=== PATIENT | female | born 1960 ===

== ENCOUNTER → 2020-11-23 08:56 | Outpatient (BNVA) | payer OTHER, SELFPAY | PROVIDERS: PCP Internal Medicine; Visit Provider Nurse Practitioner Family | DX: I47.1 Supraventricular tachycardia (principal); I45.10 Unspecified right bundle-branch block; I25.119 Atherosclerotic heart disease of native coronary artery with unspecified angina pectoris; E78.00 Pure hypercholesterolemia, unspecified; Z98.890 Other specified postprocedural states | CPT/HCPCS: 99214; 93005 ==

== ENCOUNTER → 2021-03-29 08:49 | Outpatient (BNVA) | payer OTHER, SELFPAY | PROVIDERS: PCP Internal Medicine; Visit Provider Internal Medicine Cardiovascular Disease ==

== ENCOUNTER 2022-04-10 09:08 | Outpatient (REF) | payer OTHER, SELFPAY ==
[2022-04-10 11:33] LABS: Alanine Aminotransferase 38 U/L (0-31); Albumin Level 4.3 g/dL (3.5-5.0); Alkaline Phosphatase 80 U/L (39-117); Anion Gap 15 (12-20); Aspartate Amino Transferase 36 U/L (5-31); Bilirubin Total 0.5 mg/dL (0.0-1.0); Blood Urea Nitrogen 11 mg/dL (9-16); Calcium 9.5 mg/dL (8.4-10.2); Carbon Dioxide 27 mmol/L (22-29); Chloride 105 mmol/L (96-108); Cholesterol 142 mg/dL; Estimated Glomerular Filt Rate > 60; Glucose Fasting 107 mg/dL (60-99); HDL Cholesterol 58 mg/dL; LDL Cholesterol Calculated 62 mg/dl; Potassium 4.6 mmol/L (3.3-5.1); Sodium 142 mmol/L (135-145); Total Protein 7.4 g/dL (6.5-8.0); Triglycerides 114 mg/dL
[2022-04-10 11:48] LABS: TSH reflex Free T4 1.98 uIU/mL (0.32-4.0)
== END 2022-04-10 09:09 | disposition home or self-care (01) ==
LOC: HO.HMGCLDS 09:08
PROVIDERS: PCP Internal Medicine; Visit Provider Internal Medicine
DX: I25.119 Atherosclerotic heart disease of native coronary artery with unspecified angina pectoris (principal); I47.1 Supraventricular tachycardia
CPT/HCPCS: 36415; 80053; 80061; 84443

== ENCOUNTER → 2022-05-10 09:04 | Outpatient (BNVA) | payer OTHER, SELFPAY | PROVIDERS: PCP Internal Medicine; Referring Provider Internal Medicine; Visit Provider Internal Medicine Cardiovascular Disease | DX: I25.119 Atherosclerotic heart disease of native coronary artery with unspecified angina pectoris (principal); I47.1 Supraventricular tachycardia | CPT/HCPCS: 93005 ==

== ENCOUNTER 2023-05-03 10:25 | Outpatient (REF) | payer OTHER, SELFPAY ==
[2023-05-03 10:34] LABS: MANUAL DIFF FLAG NO
[2023-05-03 10:53] LABS: Basophils Percent Auto 0.8 % (0-2); Eosinophils Absolute Auto 0.2 X10*3/uL (0.0-0.4); Eosinophils Percent Auto 3.1 % (0-4); Hemoglobin 13.7 g/dl (12.0-16.0); Imm Gran Abs Auto 0.02 X10*3/uL (0.00-0.03); Imm Gran Pct Auto 0.4 % (0.0-0.4); Lymphocytes Absolute Auto 1.6 X10*3/uL (1.2-4.9); Lymphocytes Percent Auto 30.5 % (20-40); Mean Corpuscular HGB Conc 32.6 g/dl (31.0-35.0); Mean Corpuscular Hemoglobin 31.7 pg (27.0-33.0); Mean Corpuscular Volume 97.2 fL (80.0-98.0); Mean Platelet Volume 8.6 fL (9.4-12.3); Monocytes Absolute Auto 0.7 X10*3/uL (0.1-1.2); Monocytes Percent Auto 12.6 % (2-11); Neutrophils Absolute Auto 2.7 x10*3/uL (2.0-8.3); Neutrophils Percent Auto 52.6 % (45-73); Platelet Count 257 X10*3/uL (160-400); Red Blood Count 4.32 X10*6/uL (4.20-5.50); Red Cell Distribution Width 13.3 % (11.0-16.0); White Blood Count 5.1 X10*3/uL (4.8-10.8)
[2023-05-03 11:51] LABS: Alanine Aminotransferase 34 U/L (0-31); Albumin Level 4.4 g/dL (3.5-5.0); Alkaline Phosphatase 68 U/L (39-117); Anion Gap 15 (12-20); Aspartate Amino Transferase 30 U/L (5-31); Bilirubin Total 0.4 mg/dL (0.0-1.0); Blood Urea Nitrogen 10 mg/dL (9-16); Calcium 9.7 mg/dL (8.4-10.2); Carbon Dioxide 24 mmol/L (22-29); Chloride 107 mmol/L (96-108); Cholesterol 152 mg/dL (<200); Estimated Glomerular Filt Rate > 60; Glucose Fasting 95 mg/dL (60-99); HDL Cholesterol 52 mg/dL (>40); LDL Cholesterol Calculated 66 mg/dL (<100); Sodium 142 mmol/L (135-145); Total Protein 7.7 g/dL (6.5-8.0); Triglycerides 170 mg/dL (<150)
[2023-05-03 11:54] LABS: Vitamin D 25-OH Total 42.3 ng/mL (>30)
[2023-05-05 03:57] LABS: HBS Num1 64.73 mIU/mL (0-7.99); HBc Num1 0.07 S/CO (0.00-0.79); HBsAGNum1 0.32 S/CO (0.00-0.99); Hepatitis B Core Antibody Nonreactive (Nonreactive); Hepatitis B Surface Antigen Negative (Negative); ~HepC Num1 0.04 S/CO (0.00-0.79); ~Hepatitis B Surface Antibody REACTIVE (Nonreactive); ~Hepatitis C Antibody Nonreactive (Nonreactive)
== END 2023-05-03 10:26 | disposition home or self-care (01) ==
LOC: HO.LAB 10:25
PROVIDERS: PCP Internal Medicine; Visit Provider Internal Medicine
DX: I10 Essential (primary) hypertension (principal); E78.00 Pure hypercholesterolemia, unspecified; R79.89 Other specified abnormal findings of blood chemistry
CPT/HCPCS: 36415; 80053; 80061; 82306; 85025; 86704; 86706; 86803; 87340

== ENCOUNTER 2023-05-06 08:23 | Outpatient (AMB) | payer OTHER, SELFPAY ==
[2023-05-06 08:24] VITALS: BP 120/72; PULSE 56; O2SAT 96; BMI 28.7
--- NOTE | 2023-05-06 08:24 | MHC.PC.OV ---
Vital Signs 05/06/23 08:24 Height 5 ft 3 in Weight 162 lb BMI 28.7 BP 120/72 Blood Pressure Location Lt brachial Position Sitting Pulse 56 Pulse Source Pulse Oximeter Pulse Oximetry (%) 96 Oxygen Delivery Method Room Air Intake Visit Reasons: PE Intake Note: Pt is here today for PE. Allergies Sulfa (Sulfonamide Antibiotics) [SULFA (SULFONAMIDE ANTIBIOTICS)] Allergy (Unknown, Verified 05/06/23 08:26) UNKNOWN sulfur Allergy (Unknown, Uncoded 05/06/23 08:26) redness and itching Medication List - Last Reconciled 05/06/23 by Adali Asif MD amlodipine 5 mg PO DAILY aspirin 81 mg PO DAILY atorvastatin 20 mg PO DAILY flecainide 50 mg PO BID metoprolol succinate ER 50 mg PO BID 90 days Tobacco use date assessed: 05/06/23 Dental Screening Dental Screen Date: 05/06/23 Did you have a dental visit in the last 12 months?: Yes Did you have a dental problem in the last 6 months where you did not have access to dental care?: No Was dental information given to patient?: Patient has dentist HPI PE HPI Details Pt presents for PE. [facility] Medical History (Updated 05/06/23 @ 10:21 by Adali Asif MD) Pure hypercholesterolemia, unspecified Essential hypertension Coronary artery disease involving [place] coronary artery of [place] heart with angina pectoris SVT (supraventricular tachycardia) Right bundle branch block (RBBB) Surgical History History of cardiac catheterization Family History Father No problems noted. Mother No problems noted. Brother No problems noted. 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 Housing: House Alcohol intake: current Alcohol intake frequency: a few times a month Patient Tobacco Use Status: Never used Tobacco e-Cigarette/Vaping Use: Never Used service: No Current occupational status: employed Cognitive needs: No Hearing needs: No Vision needs: Yes Questionnaire Thrive Questionnaire Date Thrive assessed: 11/04/22 I am a: Patient What is your living situation today?: I have a steady place to live Within the past 12 months, did the food you bought not last and you didn't have the money to get more?: Never true Within the past 12 months, did you worry whether your food would run out before you got money to buy more?: Never true AUDIT C Alcohol Use Questionnaire (AUDIT-C) 1. How often do you have a drink containing alcohol?: 2-3 times a week 2. How many drinks containing alcohol do you have on a typical day when you are drinking?: 1 or 2 3. How often do you have six or more drinks on one occasion?: Never Total Score: 3 KVNG-7 AMB Questionnaire KVNG-7 Date KVNG - 7 assessed: 11/04/22 Feeling nervous, anxious, or on edge: 0 = Not at all Not being able to stop or control worryin = Not at all Worrying too much about different things: 0 = Not at all Trouble relaxin = Not at all Being so restless that it is hard to sit still: 0 = Not at all Becoming easily annoyed or irritable: 0 = Not at all Feeling afraid as if something awful might happen: 0 = Not at all Total KVNG-7 score (0-4 normal; 5-9 mild; 10-14 moderate; 15-21 severe): 0 Source: Developed by Drs. Hossein Mccoy, Ai Carlin, Rohan Chao and colleagues, with an educational mariann from [employer]. Review of Systems Const All systems reviewed & are unremarkable except as noted in HPI and below Reports no additional complaints Eyes Reports no additional complaints ENT Reports no additional complaints Card Reports no additional complaints Resp Reports no additional complaints GI Reports no additional complaints Reports no additional complaints Physical exam (Primary Care) Vital Signs: Last Vital Signs Pulse 56 05/06/23 08:24 BP 120/72 05/06/23 08:24 Pulse Ox 96 05/06/23 08:24 Oxygen Delivery Method Room Air 05/06/23 08:24 BMI result Body Mass Index 28.7 Tobacco/Smoking Status: Tobacco use Status Tobacco use date assessed 05/06/23 05/06/23 08:30 Patient Tobacco Use Status Never used Tobacco 05/06/23 08:30 e-Cigarette/Vaping Use Never Used 05/06/23 08:30 Thrive Assessment: Date of Thrive Assessment Date Thrive assessed 11/04/22 05/06/23 08:30 Const General: no acute distress HENMT Head: Yes normal to inspection Ears: hearing grossly normal bilaterally General nose exam: Normal external nose present Throat: Yes posterior oropharynx normal Neck Neck: Yes no lymphadenopathy and Yes supple Resp Effort & Inspection: normal respiratory effort Auscultation: clear to auscultation bilaterally Cardio Rhythm: regular rhythm Heart sounds: S1 normal heart sound present and S2 normal heart sound present GI Inspection: Yes normal to inspection Palpation (GI): Soft to palpation Percussion: Yes normal to percussion Auscultation: normal bowel sounds Assessment and Plan Assessment & Plan (1) Hx of colonoscopy: Comment: 1 polyp, ? 2017, repeat 5 yrs, [facility] Dr. Isabel Code(s): Z98.890 - Other specified postprocedural states (2) Normal pelvic exam: Comment: [facility] courier 03/2022 Code(s): Z01.419 - Encounter for gynecological examination (general) (routine) without abnormal findings (3) Pure hypercholesterolemia, unspecified: Code(s): E78.00 - Pure hypercholesterolemia, unspecified Plan: Continue statin (4) Essential hypertension: Code(s): I10 - Essential (primary) hypertension (5) Coronary artery disease involving [place] coronary artery of [place] heart with angina pectoris: Code(s): I25.119 - Atherosclerotic heart disease of [place] coronary artery with unspecified angina pectoris (6) SVT (supraventricular tachycardia): Comment: f/u Dr. Sharma, sees Dr. Hall, started flecainide 12/01 Code(s): I47.1 - Supraventricular tachycardia Plan: EKG showed question of AFib with heart rate on 02/08, right bundle branch block. Patient will cont current meds and will discuss with Dr. Hall. Obtaining Holter monitor discussed with the patient but she declined. Orders: Orders Comprehensive [place]. Panel Fast 365 Days E78.00 - Pure hypercholesterolemia, unspecified, I10 - Essential (primary) hypertension, I47.1 - Supraventricular tachycardia, Z00.00 - Encounter for general adult medical examination without abnormal findings Complete Blood Count Auto Diff 365 Days E78.00 - Pure hypercholesterolemia, unspecified, I10 - Essential (primary) hypertension, I47.1 - Supraventricular tachycardia, Z00.00 - Encounter for general adult medical examination without abnormal findings Lipid Panel 365 Days E78.00 - Pure hypercholesterolemia, unspecified, I10 - Essential (primary) hypertension, I47.1 - Supraventricular tachycardia, Z00.00 - Encounter for general adult medical examination without abnormal findings TSH reflex Free T4 365 Days E78.00 - Pure hypercholesterolemia, unspecified, I10 - Essential (primary) hypertension, I47.1 - Supraventricular tachycardia, Z00.00 - Encounter for general adult medical examination without abnormal findings Coding Level of Care Code Est Pt Prev Care 40-64y(75958) Diagnoses Hx of colonoscopy Z98.890 Normal pelvic exam Z01.419 Pure hypercholesterolemia, unspecified E78.00 Essential hypertension I10 Coronary artery disease involving [place] coronary artery of [place] heart with angina pectoris I25.119 SVT (supraventricular tachycardia) I47.1
== END 2023-05-06 09:34 | disposition home or self-care (01) ==
PROVIDERS: Visit Provider Internal Medicine
DX: Z00.00 Encounter for general adult medical examination without abnormal findings (principal); I10 Essential (primary) hypertension; Z98.890 Other specified postprocedural states; I25.119 Atherosclerotic heart disease of native coronary artery with unspecified angina pectoris; I47.1 Supraventricular tachycardia; E78.00 Pure hypercholesterolemia, unspecified
CPT/HCPCS: 99396

== ENCOUNTER 2023-05-16 09:12 | Outpatient (AMB) | payer OTHER, SELFPAY ==
--- NOTE | 2023-05-16 10:47 | MHC.OFFWIV ---
Intake Vital Signs 05/16/23 10:52 Height 5 ft 3 in Weight 162 lb BMI 28.7 BP 120/90 H Blood Pressure Location Lt brachial Position Sitting Pulse 56 Pulse Source Pulse Oximeter Pulse Oximetry (%) 96 Oxygen Delivery Method Room Air Intake Visit Reasons: EP, Right shoulder pain Intake Note: Patient here for right shoulder pain, she believes to have pulled something on friday. Patient Tobacco Use Status: Never used Tobacco Allergies Sulfa (Sulfonamide Antibiotics) [SULFA (SULFONAMIDE ANTIBIOTICS)] Allergy (Unknown, Verified 05/16/23 10:52) UNKNOWN sulfur Allergy (Unknown, Uncoded 05/16/23 10:52) redness and itching Do you need a note to return to daycare/school/sports/work: No HPI HPI Comments History of Present Illness Details This is a 62-year-old female who presents to the office today for sick visit. Patient complaining of right shoulder pain x4 days. Patient states she developed acute right shoulder pain after lifting her arms to grab nesting dotson on the top shelf of her cabinet. She reports pain with range of motion in all planes. She denies any numbness/weakness/ paresthesias of her arm or hand. She is otherwise feeling well. [facility] Medical History (Updated 05/16/23 @ 11:06 by HUGH Dubose) Pure hypercholesterolemia, unspecified Essential hypertension Coronary artery disease involving [place] coronary artery of [place] heart with angina pectoris SVT (supraventricular tachycardia) Right bundle branch block (RBBB) Surgical History History of cardiac catheterization Family History Father No problems noted. Mother No problems noted. Brother No problems noted. 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 Housing: House Alcohol intake: current Alcohol intake frequency: a few times a month Patient Tobacco Use Status: Never used Tobacco e-Cigarette/Vaping Use: Never Used service: No Current occupational status: employed Cognitive needs: No Hearing needs: No Vision needs: Yes Review of Systems Const All systems reviewed & are unremarkable except as noted in HPI and below Reports no additional complaints Eyes Reports no additional complaints ENT Reports no additional complaints Card Reports no additional complaints Resp Reports no additional complaints GI Reports no additional complaints Reports no additional complaints Musc Reports no additional complaints Skin/Breast Reports system reviewed and no additional complaints, except as documented Neuro Reports no additional complaints Psych Reports no additional complaints Endo Reports no additional complaints Gautam/Lymph Reports no additional complaints Aller/Immun Reports no additional complaints Physical Exam Vital Signs: Last Vital Signs Pulse 56 05/16/23 10:52 BP 120/90 H 05/16/23 10:52 Pulse Ox 96 05/16/23 10:52 Oxygen Delivery Method Room Air 05/16/23 10:52 BMI result Body Mass Index 28.7 Const Other: Vital signs reviewed. Constitutional: Non-toxic appearing. No acute distress. Well-developed and well-nourished. HEENT: Normocephalic and atraumatic. Tympanic membranes without erythema, edema, or bulging bilaterally. External auditory canals without erythema or edema bilaterally. Moist mucous membranes. No pharyngeal erythema or exudates. Skin: Warm and dry. No rashes or lesions noted. Neck: Full and painless range of motion. No cervical lymphadenopathy. Cardio: Regular rate. No lower extremity edema. No JVD. Pulmonary: No respiratory distress. No accessory muscle usage. Gastrointestinal: Soft, nontender, and nondistended in all 4 quadrants. Genitourinary: No CVA tenderness. Musculoskeletal: No focal or bony tenderness to palpation of the right shoulder. She has mild diffuse tenderness to palpation of the right shoulder. She has decreased range of motion with forward flexion, abduction, and internal / external rotation of the right shoulder. Neuro: Alert and oriented x4. Cranial nerves 2-12 grossly intact. No focal deficits appreciated. Psych: Normal mood and affect. Assessment & Plan Assessment & Plan (1) Sprain of right shoulder: Code(s): S43.401A - Unspecified sprain of right shoulder joint, initial encounter Plan: This is a 62-year-old female who presents to the office complaining of right shoulder pain x4 days. On physical examination, patient has decreased range of motion with forward flexion, abduction, and internal / external rotation of the right shoulder. Differential diagnosis includes sprain/ strain versus rotator cuff tear versus labral tear versus less likely fracture/avulsion fracture. Obtain x-ray of the right shoulder. Recommend rest/activity modification, ice to the area, and acetaminophen for pain management. Patient was given a prescription for PO prednisone 40 mg daily x5 days to help with inflammation and she is unable to take ibuprofen. Orthopedic surgery referral was given to the patient. The patient was given a shoulder immobilizer sling to use for 1 week. Patient advised to follow-up here or go to the emergency room for persistent/worsening symptoms. Patient verbalized understanding and is agreeable with the plan. Orders: Orders XR shoulder RT min 2V Today M25.511 - Pain in right shoulder Referrals Orthopedics Referral M25.511 - Pain in right shoulder Medications: New prednisone 40 mg (2 x 20 mg) PO DAILY 5 tabs 0RF Coding Level of Care Code Est Pt Level 3 (07236) Diagnoses Sprain of right shoulder S43.401A
[2023-05-16 10:52] VITALS: BP 120/90; PULSE 56; O2SAT 96; BMI 28.7
== END 2023-05-16 11:21 | disposition home or self-care (01) ==
PROVIDERS: PCP Internal Medicine; Visit Provider Physician Assistant Medical
DX: S43.401A Unspecified sprain of right shoulder joint, initial encounter (principal)
CPT/HCPCS: 99213

== ENCOUNTER 2023-05-16 11:08 | Outpatient (REF) | payer OTHER, SELFPAY | END 2023-05-16 11:09 | disposition home or self-care (01) | LOC: HO.HMGCX 11:08 | PROVIDERS: PCP Internal Medicine; Visit Provider Physician Assistant Medical | DX: M25.511 Pain in right shoulder (principal) | CPT/HCPCS: 73030 ==

== ENCOUNTER 2024-05-07 09:02 | Outpatient (AMB) | payer OTHER, SELFPAY ==
--- NOTE | 2024-05-07 09:02 | A.OFFPC_ITS ---
Vital Signs 05/07/24 09:03 Height 5 ft 3 in Weight 160 lb BMI 28.3 BP 96/60 Blood Pressure Location Rt brachial Position Sitting Pulse 63 Pulse Source Pulse Oximeter Pulse Oximetry (%) 95 Oxygen Delivery Method Room Air Intake Visit Reasons: PE Intake Note: Pt is here today for PE. Allergies Sulfa (Sulfonamide Antibiotics) [SULFA (SULFONAMIDE ANTIBIOTICS)] Allergy (Unknown, Verified 05/07/24 09:04) UNKNOWN sulfur Allergy (Unknown, Uncoded 05/07/24 09:04) redness and itching Medication List - Last Reconciled 05/07/24 by Adali Asif MD amlodipine 5 mg PO DAILY aspirin 81 mg PO DAILY atorvastatin 20 mg PO DAILY flecainide 50 mg PO BID metoprolol succinate ER 50 mg PO BID 90 days Tobacco use date assessed: 05/07/24 Dental Screening Dental Screen Date: 05/07/24 Did you have a dental visit in the last 12 months?: Yes Did you have a dental problem in the last 6 months where you did not have access to dental care?: No Was dental information given to patient?: Patient has dentist HPI PE HPI Details Pt presents for PE. [facility] Medical History (Updated 05/07/24 @ 09:22 by Adali Asif MD) Pure hypercholesterolemia, unspecified Essential hypertension Coronary artery disease involving [place] coronary artery of [place] heart with angina pectoris SVT (supraventricular tachycardia) Right bundle branch block (RBBB) Surgical History (Updated 05/07/24 @ 09:22 by Adali Asif MD) History of cardiac catheterization Family History Father No problems noted. Mother No problems noted. Brother No problems noted. 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 1. Little interest or pleasure in doing things: not at all 2. Feeling down, depressed, or hopeless: not at all 3. Trouble falling or staying asleep, or sleeping too much: not at all 4. Feeling tired or having little energy: not at all 5. Poor appetite or overeating: not at all 6. Feeling bad about yourself - or that you are a failure or have let yourself or your family down: not at all 7. Trouble concentrating on things, such as reading the newspaper or watching television: not at all 8. Moving or speaking so slowly that other people could have noticed. Or the opposite - being so fidgety or restless that you have been moving around a lot more than usual: not at all 9. Thoughts that you would be better off or of hurting yourself in some way: not at all Total score: 0 Depression Screening Interpretation: Negative Depression Screening Done: Yes 55621 - PHQ-9 Billing: Yes Source: Developed by Drs. Hossein Mccoy, Ai Carlin, Rohan Chao and colleagues, with an educational mariann from [employer]. Thrive Questionnaire Date Thrive assessed: 05/07/24 I am a: Patient What is your living situation today?: I have a steady place to live Within the past 12 months, did the food you bought not last and you didn't have the money to get more?: I choose not to answer this question Within the past 12 months, did you worry whether your food would run out before you got money to buy more?: I choose not to answer this question Do you have trouble paying for medicines?: I choose not to answer this question Do you have trouble getting transportation to medical appointments?: I choose not to answer this question Do you have trouble paying your heating and electricity bill?: I choose not to answer this question Do you have trouble taking care of your child, family member or friend?: I choose not to answer this question Do you have trouble with day-to-day activities such as bathing, preparing meals, shopping, managing finances, etc.?: I choose not to answer this question Are you interested in more education?: No Please select the resources that you would like help with: None Currently or been in a relationship where the following occur: I choose not to answer THRIVE Score: 0 AUDIT C Alcohol Use Questionnaire (AUDIT-C) 1. How often do you have a drink containing alcohol?: Never 3. How often do you have six or more drinks on one occasion?: Never Total Score: 0 KVNG-7 AMB Questionnaire KVNG-7 Date KVNG - 7 assessed: 05/07/24 Feeling nervous, anxious, or on edge: 0 = Not at all Not being able to stop or control worryin = Not at all Worrying too much about different things: 0 = Not at all Trouble relaxin = Not at all Being so restless that it is hard to sit still: 0 = Not at all Becoming easily annoyed or irritable: 0 = Not at all Feeling afraid as if something awful might happen: 0 = Not at all Total KVNG-7 score (0-4 normal; 5-9 mild; 10-14 moderate; 15-21 severe): 0 Source: Developed by Drs. Hossein Mccoy, Ai Carlin, Rohan Chao and colleagues, with an educational mariann from [employer]. KVNG-7 Assessment Billing KVNG-7 Assessment Tool: KVNG-7 Assessment 05463 Review of Systems Const All systems reviewed & are unremarkable except as noted in HPI and below Eyes Reports no additional complaints ENT Reports no additional complaints Card Reports no additional complaints Resp Reports no additional complaints GI Reports no additional complaints Reports no additional complaints Physical exam (Primary Care) Vital Signs: Last Vital Signs Pulse 63 05/07/24 09:03 BP 96/60 05/07/24 09:03 Pulse Ox 95 05/07/24 09:03 Oxygen Delivery Method Room Air 05/07/24 09:03 BMI result Body Mass Index 28.3 Tobacco/Smoking Status: Tobacco use Status Tobacco use date assessed 05/07/24 05/07/24 09:09 Patient Tobacco Use Status Never used Tobacco 05/07/24 09:09 e-Cigarette/Vaping Use Never Used 05/07/24 09:09 PHQ-9: PHQ-9 Score PHQ-9: Total score 0 05/07/24 09:09 Depression Screening Interpretation: Negative Thrive Assessment: Date of Thrive Assessment Date Thrive assessed 05/07/24 05/07/24 09:09 Currently or been in a relationship where the following occur: I choose not to answer Const General: no acute distress HENMT Head: Yes normal to inspection Ears: hearing grossly normal bilaterally Face and sinus: Yes normal facial exam Mouth: Normal oral and palatal mucosa present Throat: Yes posterior oropharynx normal Eyes General: appearance normal, both eyes and all related structures Neck Neck: Yes no lymphadenopathy and Yes supple Resp Effort & Inspection: normal respiratory effort Auscultation: clear to auscultation bilaterally Cardio Rhythm: regular rhythm Heart sounds: S1 normal heart sound present and S2 normal heart sound present GI Inspection: Yes normal to inspection Palpation (GI): Soft to palpation Percussion: Yes normal to percussion Auscultation: normal bowel sounds Assessment and Plan Assessment & Plan (1) Essential hypertension: Code(s): I10 - Essential (primary) hypertension Plan: Continue current medications (2) Pure hypercholesterolemia, unspecified: Code(s): E78.00 - Pure hypercholesterolemia, unspecified Plan: Continue statin (3) Hx of colonoscopy: Comment: 1 polyp, ? 2017, repeat 7 yrs, [facility] Dr. Isabel Code(s): Z98.890 - Other specified postprocedural states Plan: Patient will check with GI when she is due for a repeat colonoscopy (4) Annual physical exam: Code(s): Z00.00 - Encounter for general adult medical examination without abnormal findings Plan: Well-balanced diet regular physical activity discussed with the patient she will return for fasting blood work. Patient is up-to-date with the mammogram and pe lvic exam by master of ceremonies Orders: Orders Complete Blood Count Auto Diff 1 Year E78.00 - Pure hypercholesterolemia, unspecified, I10 - Essential (primary) hypertension, Z00.00 - Encounter for general adult medical examination without abnormal findings, Z98.890 - Other specified postprocedural states TSH reflex Free T4 1 Year E78.00 - Pure hypercholesterolemia, unspecified, I10 - Essential (primary) hypertension, Z00.00 - Encounter for general adult medical examination without abnormal findings, Z98.890 - Other specified postprocedural states Lipid Panel 1 Year E78.00 - Pure hypercholesterolemia, unspecified, I10 - Essential (primary) hypertension, Z00.00 - Encounter for general adult medical examination without abnormal findings, Z98.890 - Other specified postprocedural states Comprehensive [place]. Panel Fast 1 Year E78.00 - Pure hypercholesterolemia, unspecified, I10 - Essential (primary) hypertension, Z00.00 - Encounter for general adult medical examination without abnormal findings, Z98.890 - Other specified postprocedural states UA w Microscopic 1 Year E78.00 - Pure hypercholesterolemia, unspecified, I10 - Essential (primary) hypertension, Z00.00 - Encounter for general adult medical examination without abnormal findings, Z98.890 - Other specified postprocedural states Medications: Refilled amlodipine 5 mg PO DAILY 90 tabs 3RF aspirin 81 mg PO DAILY 90 tabs 3RF atorvastatin 20 mg PO DAILY 90 tabs 3RF Coding Level of Care Code Est Pt Prev Care 40-64y(75743) Diagnoses Essential hypertension I10 Pure hypercholesterolemia, unspecified E78.00 Hx of colonoscopy Z98.890 Annual physical exam Z00.00 Additional Codes KVNG-7 Assessment Billing - KVNG-7 Assessment Tool: KVNG-7 Assessment 10684 ([id number])
[2024-05-07 09:03] VITALS: BP 96/60; PULSE 63; O2SAT 95; BMI 28.3
== END 2024-05-07 09:33 | disposition home or self-care (01) ==
PROVIDERS: PCP Internal Medicine; Visit Provider Internal Medicine
DX: I10 Essential (primary) hypertension (principal); E78.00 Pure hypercholesterolemia, unspecified; Z98.890 Other specified postprocedural states; Z00.00 Encounter for general adult medical examination without abnormal findings

== ENCOUNTER → 2024-05-07 09:02 | Outpatient (BNVA) | payer OTHER, SELFPAY | PROVIDERS: PCP Internal Medicine; Visit Provider Internal Medicine | DX: Z00.00 Encounter for general adult medical examination without abnormal findings (principal); I10 Essential (primary) hypertension; E78.00 Pure hypercholesterolemia, unspecified; Z79.899 Other long term (current) drug therapy | CPT/HCPCS: 96127 ==

== ENCOUNTER 2025-01-12 07:46 | Outpatient (REF) | payer OTHER, SELFPAY ==
--- OUTSIDE RECORDS SUMMARY | 2025-01-12 07:50 | XMS_ITS | Clinical Summary ---
Author Organization [address] [place] [address] [place] [phone] Phone Care Team Providers Care Hydraulic Design Engineer Name Role Phone Adali Asif MD Primary Care Provider [phone] Allergies Active Allergy Reactions Criticality Noted Date Comments Sulfa (Sulfonamide Antibiotics) 08/11 Medications amLODIPine (NORVASC) 5 mg tablet Take 1 tablet by mouth daily. 09/20/2021 Active aspirin 81 mg chewable tablet Take 1 Tab by mouth daily. 08/27/2019 Active atorvastatin (LIPITOR) 20 mg tablet Take 1 tablet by mouth daily. 09/19/2021 Active metoprolol succinate (TOPROL-XL) 50 mg 24 hr tablet Take 1 Tablet by mouth 2 times daily. 03/23/2024 Active flecainide (TAMBOCOR) 50 mg tablet Take 1 tablet (50 mg total) by mouth 2 (two) times a day. 180 tablet 3 06/17/2024 Active sod picosulf-mag ox-citric ac (Clenpiq) 10 mg-3.5 gram- 12 gram/175 mL solutionIndicati ons:Colon cancer screening Take 175 mL by mouth 2 (two) times a day. 350 mL 08/24/2024 Active Active Problems Problem Noted Date Diagnosed Date RBBB (right bundle branch block) 11/18/2022 Prediabetes 09/18/2021 Genital herpes 09/09/2019 PSVT (paroxysmal supraventri cular tachycardia) (CMS/HCC V24) 09/09/2019 Overview (06/07/2024): Supraventricular tachycardia. Patient refused ablation. Started flecainide which she is tolerating well. On metoprolol for rate control and underlying mild coronary disease. Last Assessment & Plan: Cindy is doing well on her current medicines and is very happy with the absence of any arrhythmias. I had a long discussion with her regarding the pros and cons of using flecainide. She understands the literature in patients with extensive coronary disease and prior infarct showing increased rates of ventricular tachycardia. We went through some alternative antiarrhythmics but she would like to stay with the flecainide. She did agree to undergo stress test with imaging to be certain that there is no active ischemia and I will continue the low-dose flecainide along with metoprolol. She will continue to consider catheter ablation as an alternative. Assessment & Plan (06/17/2024 2:38 PM EST): Supraventricular tachycardia currently controlled with metoprolol and flecainide. I had a long discussion with Cindy regarding the fact that she is not an ideal patient for flecainide having documented coronary disease and a right bundle branch block with a fairly wide QRS complex. I explained the data suggesting a potential increased risk for flecainide in patients with coronary disease or conduction disease. I went through catheter ablation with their and discussed the 98% success rate and very low complication rate. I would certainly we will get her off of both drugs if we were to perform the ablation successfully. I talked about other antiarrhythmic drugs and she was fairly firm that she wants to continue with the current medications. I did give her literature on the ablation and she will let me know if she is willing to proceed. Obesity (BMI 30.0-34.9) 12/29/2018 Abnormal Pap smear of cervix 03/26/2018 Overview (06/07/2024): 8/18 ASCUS with positive HPV 9/19 ASCUS with positive HPV Colon polyp 06/25/2017 Overview (06/07/2024): CN 05/27 - repeat 5 years Hyperlipidemia 06/25/2017 Assessment & Plan (06/17/2024 2:38 PM EST): Elevated lipids currently on a statin. Tolerating atorvastatin well. Hypertension 06/25/2017 Overview (06/07/2024): Last Assessment & Plan: Blood pressure appears to be well controlled on amlodipine and metoprolol. She will continue a low-sodium diet and active lifestyle. High risk HPV infection 12/23/2016 Overview (06/07/2024): Pap 12/06 neg with positive HPV 18 and 45. Colposcopy ordered. Colposcopy with biopsy 01/31 - NEGATIVE. Recommended pap in 12 months. CAD (coronary artery disease) 04/10/2012 Overview (06/07/2024): Nonobstructive disease LAD cath 03/27. Mild to moderate disease of the left circumflex and LAD with a normal right coronary artery. On atorvastatin with an LDL cholesterol of 45 and a normal HDL. Her triglycerides have typically been normal. Her most recent one was elevated but she did not fast for that blood sample. She has no active angina and exercises fairly regularly Last Assessment & Plan: This 62-year-old female has stable mild coronary disease without active angina. She is on a lipid-lowering agent with an excellent LDL cholesterol at below 50. She takes a low-dose aspirin which she tolerates well. She is on metoprolol for SVT and heart disease. Continue current medical therapy. I do want to bring her back for a nuclear stress test given she is on flecainide and is imperative to rule out any ischemia if she is going to continue with this medication. Assessment & Plan (06/17/2024 2:35 PM EST): Stable coronary disease without angina. Recent nuclear stress test negative. Current continues to take aspirin and lipid-lowering therapy. Encouraged continued healthy lifestyle and diet. Encounters Date Type Department Care Team Description 11/08/2024 Telephone Gastroenterology - [address] [place] [address] Adali Boyd MD Special Procedure R/S from Last 3 Months Immunizations Name Administration Dates Next Due Hepatitis B (Psfcpqo-N-Malil , Recombivax HB-Adult) 19yo and older 01/04/2015,08/10/2014,07/13/2014 Pfizer SARS-CoV-2 COVID-19, mRNA, LNP-S, preservative free 11/16/2020,10/26/2020 Td Tetanus diptheria (Tdvax) 7yo and older 03/19 Tdap Tetanus diptheria acell ular pertussis (Boostrix; Adacel) 7yo and older 03/01/2014 Surgical History Surgery Date Site/Laterality Comments OTHER SURGICAL HISTORY 03/2019 PROCEDURE: MAMMOGRAM COLONOSCOPY 05/2017 PROCEDURE: HISTORICAL COLONOSCOPY; COMMENT: small polyp, repeat 5 years CARDIAC CATHETERIZATION PROCEDURE: HISTORICAL CARDIAC CATH Medical History Medical History Date Comments Erythema migrans (Lyme disease) 01/09/12 DX:Erythema migrans (Lyme disease) Hypertension 06/25/2017 DX:Hypertension Hyperlipidemia 06/25/2017 DX:Hyperlipidemi a Colon polyp 06/25/2017 DX:Colon polyp; COMMENT: CN 05/27 - repeat 5 years Abnormal Pap smear of cervix 03/26/2018 DX: Abnormal Pap smear of cervix; COMMENT: 03/28 ASCUS with positive HPV Genital herpes 09/09/2019 DX:Genital herpe s PSVT (paroxysmal supraventri cular tachycardia) (CMS/HCC V24) 09/09/2019 DX:PSVT (paroxysmal suprave ntricular tachycardia) ([facility]) Family History Medical History Relation Name Comments Brain cancer Brother Lung cancer Father 70, Lung cancer Mother 74, HTN Breast cancer Neg Hx Colon cancer Neg Hx Ovarian cancer Neg Hx Uterine cancer Neg Hx Relation Name Status Comments Brother Father Mother Social History Tobacco Use Types Packs/Day Years Used Date Smoking Tobacco: Never Smokeless Tobacco: Never Alcohol Use Standard Drinks/Week Comments Yes 0 (1 standard drink = 0.6 oz pur e alcohol) socially Comments Unknown Sex and Gender Information Value Date Recorded Sex Assigned at Not on file Legal Sex Female 12:44 PM EST Gender Identity Not on file Sexual Orientation Not on file Obstetrics History Last Filed Vital Signs Vital Sign Reading Time Taken Comments Blood Pressure 110/72 06/17/2024 1:52 PM EST Pulse 64 06/17/2024 1:52 PM EST Temperature - - Respiratory Rate - - Oxygen Saturation 98% 06/17/2024 1:52 PM EST Inhaled Oxygen Concentration - - Weight 75.8 kg (167 lb) 08/24/2024 8:51 AM EST Height 160 cm (5' 3 ) 08/24/2024 8:51 AM EST Body Mass Index 29.58 08/24/2024 8:51 AM EST Plan of Treatment Upcoming Encounters Date Type Department Care Team (Late st Contact Info) Description 01/17/2025 10:30 AM EDT Hospital Encounter [facility] End[facility] [address] [place] [id number] Adali Boyd MD [address] [address] Health Maintenance Due Date Last Done Comments Pneumococcal Vaccine: 50+ Years (1 of 1 - PCV) 2012 Zoster Vaccines (1 of 2) 2012 Colorectal Cancer Screening: Colonoscopy 07/09/2022 06/10/2017 Depression Screening 07/09/2022 HIV Screening 07/09/2022 Social Influencers of Health Screening 07/09/2022 Hypertension/CHF/CAD Annual BMP Blood Test 09/17/2022 09/17/2021 Breast Cancer Screening 04/17/2023 04/17/20 21, 03/21/2020, 03/16/2019, Additional history exists DTaP,Tdap,and Td Vaccines (3 - Td or Tdap) 03/01/2024 03/01/2014, 03/19/2006 COVID-19 Vaccine (3 - season) 2024 11/16/2020, 10/26/2020 Influenza Vaccine (Season Ended) 2025 Cervical Cancer Screening: Pap Smear 09/25/2025 09/25/2022 Cholesterol Screening (Lipid Panel) 09/17/2026 09/17/2021 RSV Immunization Adult Patients (1 - 1-dose 75+ series) 2037 Hepatitis B Vaccines Completed 01/04/2015, 08/10/2014, 07/13/2014 Hepatitis C Screening Completed 03/11/2017 HIB Vaccines Aged Out No longer eligi ble based on patient's age to complete this topic HPV Vaccines Aged Out No longer eligi ble based on patient's age to complete this topic Hepatitis A Vaccines Aged Out No long er eligible based on patient's age to complete this topic IPV Vaccines Aged Out No longer eligi ble based on patient's age to complete this topic MMR Vaccines Aged Out No longer eligi ble based on patient's age to complete this topic Meningococcal ACWY Vaccine Aged Out N o longer eligible based on patient's age to complete this topic Meningococcal B Vaccine Aged Out No l onger eligible based on patient's age to complete this topic Pneumococcal Vaccine: Pediatrics (0 to 5 Years) and At-Risk Patients (6 to 64 Years) Aged Out No longer eligible based on patient's age to complete this topic RSV Immunization Patients Under 20 months Aged Out No longer eligible based on patient's age to complete this topic Varicella Vaccines Aged Out No longer eligible based on patient's age to complete this topic Procedures Procedure Name Priority Date/Time Associated Diagnosis Comments PAP SMEAR Routine 09/25/2022 ANNUAL BMP BLOOD TEST Routine 09/17/2021 LIPID PANEL Routine 09/17/2021 SCREENING MAMMOGRAPHY BI 2-VIEW BREAST INC CAD Routine 04/17/2021 5:52 PM EDT Encounter for screening mammogram for malignant neoplasm of breast COLONOSCOPY Routine 06/10/2017 HEPATITIS C SCREENING Routine 03/11/2017 from Last 3 Months or Most Recently Relevant to Health Maintenance Results * Pap Smear (09/25/2022) Pathologist [facility] Pap smear No Interpretation , Abstracted Historical Provider HEALTH MAINTENANCE Final Result * Annual BMP Blood Test (09/17/2021) Pathologist [facility] Annual BMP Blood Test Abstracted Historical Provider HEALTH MAINTENANCE Final Result * (ABNORMAL) Lipid panel (09/17/2021) Pathologist [facility] LDL/HDL Ratio 3 0 - 4 Triglycerides 357(A) 0 - 150 mg/dL Cholesterol 166 0 - 200 mg/dL HDL 50 >=40 mg/dL LDL Cholesterol 45 0 - 100 mg/dL Blood Venous blood specimen / Unknown Historical Provider LAB BLOOD ORDERABLES Sugey l Result * SCREENING MAMMOGRAPHY BI 2-VIEW BREAST INC CAD (04/17/2021 5:52 PM EDT) Anatomical Region Laterality Modality Radiographic Lorenza ging 03/21/2020 5:33 PM EDT Narrative 04/18/2021 10:15 AM EDT This is a summary report. The complete report is available in the patient's medical record. If you cannot access the medical record, please contact the sending organization for a detailed fax or copy. Full field digital screening 2D and 3D mammography, reviewed with CAD and compared to previous mammograms dating back to 03/06/2017 with most recent of 03/21/2020. The breast tissue is heterogeneously dense, limiting sensitivity. No suspicious mass, architectural distortion or suspicious calcifications are identified. Benign nodule in the medial upper left breast is unchanged. IMPRESSION: : Dense breast tissue, limiting the sensitivity of mammography. No mammographic evidence of malignancy. BIRADS. 5 year breast cancer risk assessment 1.1 % Lifetime breast cancer risk assessment 6.3 % Breast cancer risk category Low (<15%) Procedure Note Francisca Mccauley MD - 07/30/2022 This is a summary report. The complete report is available in thepatient's medical record. If you cannot access the medical record, pleasecontact the sending organization for a detailed fax or copy. Full field digital screening 2D and 3D mammography, reviewed with CAD andcompared to previous mammograms dating back to 03/06/2017 with most recentof 03/21/2020. The breast tissue is heterogeneously dense, limitingsensitivity. No suspicious mass, architectural distortion or suspiciouscalcifications are identified. Benign nodule in the medial upper left breast is unchanged. IMPRESSION: : Dense breast tissue, limiting the sensitivity of mammography. Nomammographic evidence of malignancy. BIRADS. 5 year breast cancer risk assessment 1.1 % Lifetime breast cancer risk assessment 6.3 % Breast cancer risk category Low (<15%) Giselle Alejandra DO IMG XR PROCEDURES Final R esult * Hm Colonoscopy (06/10/2017) Colonoscopy No Interpretation , Abstracted Anatomical Region Laterality Modality Other Historical Provider HEALTH MAINTENANCE Final Result * Hepatitis C Screening (03/11/2017) Hepatitis C Screening Abstracted us Historical Provider HEALTH MAINTENANCE Final Result from Last 3 Months or Most Recently Relevant to Health Maintenance Insurance [facility] [address] [place] [address] Care Teams Hydraulic Design Engineer Relationship Specialty Start Date End Date Adali Asif MD PCP - General Internal Medicine 06/17/24
[2025-01-12 11:14] LABS: MANUAL DIFF FLAG NO
[2025-01-12 11:16] LABS: Appearance Urine Clear; Color Urine Yellow; Glucose Urine UA Negative (Negative); Leukocyte Esterase Urine Small (1+) (Negative); Nitrite Urine Negative (Negative); Specific Gravity - Urine 1.025 (1.005-1.025); UMIC TRIGGER UA YES; Urine Blood Negative (Negative); Urine Ketones Negative (Negative); Urine Protein Negative (Neg-Trace)
[2025-01-12 11:19] LABS: Bacteria Urine None Seen (None Seen); Hyaline Casts Urine 0-2 /LPF (0-2); RBC Urine 0-2 /HPF (0-2)
[2025-01-12 11:39] LABS: Basophils Percent Auto 0.7 % (0-2); Eosinophils Absolute Auto 0.1 X10*3/uL (0.0-0.4); Eosinophils Percent Auto 1.7 % (0-4); Imm Gran Abs Auto 0.03 X10*3/uL (0.00-0.03); Imm Gran Pct Auto 0.5 % (0.0-0.4); Lymphocytes Absolute Auto 1.7 X10*3/uL (1.2-4.9); Lymphocytes Percent Auto 29.4 % (20-40); Mean Corpuscular HGB Conc 33.3 g/dl (31.0-35.0); Mean Corpuscular Hemoglobin 32.5 pg (27.0-33.0); Mean Corpuscular Volume 97.5 fL (80.0-98.0); Mean Platelet Volume 9.1 fL (9.4-12.3); Monocytes Absolute Auto 0.7 X10*3/uL (0.1-1.2); Monocytes Percent Auto 11.2 % (2-11); Neutrophils Absolute Auto 3.3 x10*3/uL (2.0-8.3); Neutrophils Percent Auto 56.5 % (45-73); Platelet Count 331 X10*3/uL (160-400); Red Cell Distribution Width 12.9 % (11.0-16.0); White Blood Count 5.8 X10*3/uL (4.8-10.8)
[2025-01-12 14:34] LABS: Alanine Aminotransferase 38 U/L (0-31); Albumin Level 4.2 g/dL (3.5-5.0); Alkaline Phosphatase 69 U/L (39-117); Anion Gap 10 (12-20); Aspartate Amino Transferase 28 U/L (5-31); Bilirubin Total 0.4 mg/dL (0.0-1.0); Blood Urea Nitrogen 16 mg/dL (9-16); Calcium 9.1 mg/dL (8.4-10.2); Carbon Dioxide 26 mmol/L (22-29); Chloride 108 mmol/L (96-108); Cholesterol 140 mg/dL (<200); Estimated Glomerular Filt Rate > 60; Glucose Fasting 87 mg/dL (60-99); HDL Cholesterol 51 mg/dL (>40); LDL Cholesterol Calculated 41 mg/dL (<100); Potassium 4.2 mmol/L (3.3-5.1); Sodium 140 mmol/L (135-145); TSH reflex Free T4 2.46 uIU/mL (0.32-4.0); Total Protein 7.1 g/dL (6.5-8.0); Triglycerides 243 mg/dL (<150)
== END 2025-01-12 07:47 | disposition home or self-care (01) ==
LOC: HO.WFDLDS 07:46
PROVIDERS: Visit Provider Internal Medicine
DX: Z00.00 Encounter for general adult medical examination without abnormal findings (principal); I10 Essential (primary) hypertension; I47.10 Supraventricular tachycardia, unspecified; Z98.890 Other specified postprocedural states
CPT/HCPCS: 36415; 80053; 80061; 81001; 84443; 85025

== ENCOUNTER 2025-01-14 11:31 | Outpatient (AMB) | payer OTHER, SELFPAY ==
[2025-01-14 11:36] VITALS: BP 108/66; PULSE 56; RESP 18; O2SAT 98; BMI 29.2
--- NOTE | 2025-01-14 11:36 | A.OFFPC_ITS ---
Vital Signs 01/14/25 11:36 Height 5 ft 3 in Weight 165 lb BMI 29.2 BP 108/66 Blood Pressure Location Lt brachial Position Sitting Respiration 18 Pulse 56 Pulse Source Pulse Oximeter Pulse Oximetry (%) 98 Oxygen Delivery Method Room Air Intake Visit Reasons: R hip pain Intake Note: Pt is here today for a sick visit. Pt c/o R hip pain for 6-8 weeks. Allergies Sulfa (Sulfonamide Antibiotics) [SULFA (SULFONAMIDE ANTIBIOTICS)] Allergy (Unknown, Verified 01/14/25 11:56) UNKNOWN sulfur Allergy (Unknown, Uncoded 01/14/25 11:56) redness and itching Medication List - Last Reconciled 01/14/25 by Adali Asif MD amlodipine 5 mg PO DAILY aspirin 81 mg PO DAILY atorvastatin 20 mg PO DAILY flecainide 50 mg PO BID meloxicam 15 mg PO DAILY metoprolol succinate ER 50 mg PO BID 90 days Tobacco use date assessed: 01/14/25 Dental Screening Dental Screen Date: 01/14/25 Did you have a dental visit in the last 12 months?: Yes Did you have a dental problem in the last 6 months where you did not have access to dental care?: No Was dental information given to patient?: Patient has dentist HPI R hip pain HPI Details Pt c/o R hip pain located in the right for 6 weeks, worse when starting to walk or sitting for long time. Patient has been walking daily for 1 mi and denies any recent falls/or hip injury [facility] Medical History Pure hypercholesterolemia, unspecified Essential hypertension Coronary artery disease involving [place] coronary artery of [place] heart with angina pectoris SVT (supraventricular tachycardia) Right bundle branch block (RBBB) Surgical History History of cardiac catheterization Family History Father No problems noted. Mother No problems noted. Brother No problems noted. 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, 1 grandchild Housing: House Alcohol intake: current Alcohol intake frequency: a few times a month Patient Tobacco Use Status: Never used Tobacco e-Cigarette/Vaping Use: Never Used service: No Current occupational status: employed Cognitive needs: No Hearing needs: No Vision needs: Yes Questionnaire Thrive Questionnaire Date Thrive assessed: 05/07/24 I am a: Patient What is your living situation today?: I have a steady place to live Within the past 12 months, did the food you bought not last and you didn't have the money to get more?: I choose not to answer this question Within the past 12 months, did you worry whether your food would run out before you got money to buy more?: I choose not to answer this question Do you have trouble paying for medicines?: I choose not to answer this question Do you have trouble getting transportation to medical appointments?: I choose not to answer this question Do you have trouble paying your heating and electricity bill?: I choose not to answer this question Do you have trouble taking care of your child, family member or friend?: I choose not to answer this question Do you have trouble with day-to-day activities such as bathing, preparing meals, shopping, managing finances, etc.?: I choose not to answer this question Are you currently unemployed and looking for a job?: No Are you interested in more education?: No Please select the resources that you would like help with: None Currently or been in a relationship where the following occur: I choose not to answer THRIVE Score: 0 AUDIT C Alcohol Use Questionnaire (AUDIT-C) 1. How often do you have a drink containing alcohol?: Monthly or less 2. How many drinks containing alcohol do you have on a typical day when you are drinking?: 1 or 2 3. How often do you have six or more drinks on one occasion?: Never Total Score: 1 KVNG-7 AMB Questionnaire KVNG-7 Date KVNG - 7 assessed: 05/07/24 Source: Developed by Drs. Hossein Mccoy, Ai Carlin, Rohan Chao and colleagues, with an educational mariann from [employer]. Review of Systems Const All systems reviewed & are unremarkable except as noted in HPI and below Eyes Reports no additional complaints ENT Reports no additional complaints Card Reports no additional complaints Resp Reports no additional complaints GI Reports no additional complaints Physical exam (Primary Care) Vital Signs: Last Vital Signs Pulse 56 01/14/25 11:36 Resp 18 01/14/25 11:36 BP 108/66 01/14/25 11:36 Pulse Ox 98 01/14/25 11:36 Oxygen Delivery Method Room Air 01/14/25 11:36 BMI result Body Mass Index 29.2 Tobacco/Smoking Status: Tobacco use Status Tobacco use date assessed 01/14/25 01/14/25 12:00 Patient Tobacco Use Status Never used Tobacco 01/14/25 11:37 e-Cigarette/Vaping Use Never Used 01/14/25 11:37 Thrive Assessment: Date of Thrive Assessment Date Thrive assessed 05/07/24 01/14/25 11:37 Currently or been in a relationship where the following occur: I choose not to answer Const General: no acute distress HENMT Head: Yes normal to inspection Resp Effort & Inspection: normal respiratory effort Auscultation: clear to auscultation bilaterally Cardio Rhythm: regular rhythm Heart sounds: S1 normal heart sound present and S2 normal heart sound present GI Palpation (GI): Soft to palpation Percussion: Yes normal to percussion Extrem Other: This is a slightly decreased range of motion of the right hip, straight leg rising 90 degrees bilaterally. No tenderness over greater trochanteric area General: Yes no clubbing, cyanosis or edema Coding Level of Care Code Est Pt Level 3 (25524) Diagnoses Right hip pain M25.551 Essential hypertension I10 Assessment & Plan Assessment & Plan (1) Right hip pain: Code(s): M25.551 - Pain in right hip Category: Medical Plan: For chronic right hip pain obtain x-ray of right hip meloxicam for 10 days is prescribed patient was giving home exercises for hip pain if her symptoms persist she will be referred to physical therapy (2) Essential hypertension: Code(s): I10 - Essential (primary) hypertension Category: Medical Plan: Continue current medication Orders: Orders XR hip RT w [id number] Today M25.551 - Pain in right hip Medications: New meloxicam 15 mg PO DAILY 10 tabs 0RF
--- OUTSIDE RECORDS SUMMARY | 2025-01-14 12:18 | XMS_ITS | Clinical Summary ---
Author Organization [address] [place] [address] [place] [phone] Phone Care Team Providers Care International Sales Manager Name Role Phone Adali Asif MD Primary Care Provider [phone] Allergies Active Allergy Reactions Criticality Noted Date [...] 11/08/2024 Telephone Gastroenterology - [address] [place] [address] Adali Boyd MD Special Procedure R/S from Last 3 Months Immunizations Name Administration Dates Next Due Hepatitis B (Bkqlzla-I-Oqdpi , Recombivax HB-Adult) 19yo and older 01/04/2015,08/10/2014,07/13/2014 [...] V24) 09/09/2019 DX:PSVT (paroxysmal suprave ntricular tachycardia) ([facility]) Family History Medical History Relation Name Comments [...] Description 01/17/2025 10:30 AM EDT Hospital Encounter [facility] End[facility] [address] [place] [phone] Adali Boyd MD [address] [address] Health Maintenance Due Date Last Done Comments [...] * Pap Smear (09/25/2022) Pathologist [facility] Pap smear No Interpretation , Abstracted Historical Provider HEALTH MAINTENANCE Final Result * Annual BMP Blood Test (09/17/2021) Pathologist [facility] Annual BMP Blood Test Abstracted Historical Provider HEALTH MAINTENANCE Final Result * (ABNORMAL) Lipid panel (09/17/2021) Pathologist [facility] LDL/HDL Ratio 3 0 - 4 Triglycerides [...] Most Recently Relevant to Health Maintenance Insurance [facility] [address] [place] [address] Care Teams International Sales Manager Relationship Specialty Start Date End Date Adali Asif MD PCP - General Internal Medicine 06/17/24
== END 2025-01-14 13:15 | disposition home or self-care (01) ==
LOC: HO.HMCC 11:32
PROVIDERS: PCP Internal Medicine; Visit Provider Internal Medicine
DX: M25.551 Pain in right hip (principal); I10 Essential (primary) hypertension

== ENCOUNTER → 2025-01-14 11:31 | Outpatient (BNVA) | payer OTHER, SELFPAY | PROVIDERS: PCP Internal Medicine; Visit Provider Internal Medicine ==

== ENCOUNTER 2025-01-25 07:38 | Outpatient (REF) | payer OTHER, SELFPAY ==
--- NOTE | ~2025-01-25 | XR_ITS ---
EXAMINATION: XR HIP, RIGHT CLINICAL INFORMATION: M25.551 - Pain in right hip COMPARISON: None available. TECHNIQUE: Two views of the right hip. AP pelvis. FINDINGS: No acute cortical disruption or malalignment. Sclerosis along the articular surface of the acetabulum. Asymmetric joint space narrowing. No lytic or blastic lesions. Sclerosis and the sacroiliac joints. Bony pelvis is intact. XR/XR hip RT w [id number] IMPRESSION: Mild osteoarthrosis, right hip. Electronically signed by: Genaro Lane MD 01/25/2025 08:21 AM EDT
--- OUTSIDE RECORDS SUMMARY | 2025-01-25 07:40 | XMS_ITS | Continuity of Care Document ---
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 Refills 0, Maintenance, 03/26/17 9:32:41 AM EDT,Route to Pharmacy Electronically, [facility] Start Date: 03/26/17 Stop Date: 04/25/17 Status: Ordered Quantity: 30.0 Unit: tablet Repeat number: 1 aspirin 81 mg oral delayed release tablet 81 mg, By Mouth, Daily, # 30 tablet, Refills 0, Tot. Refills 0, Maintenance, 03/26/17 9:32:44 AM EDT, Route to Pharmacy Electronically, [facility] Start Date: 03/26/17 Stop Date: 04/25/17 Status: Ordered Quantity: 30.0 Unit: tablet Repeat number: 1 atorvastatin 20 mg oral tablet 1 tablet = 20 mg, By Mouth, Daily, # 30 tablet, 0 Refills, Maintenance, Tablet, Route to Pharmacy Electronically, [id number], [facility] Start Date: 03/26/17 Status: Ordered Quantity: 30.0 Unit: tablet Repeat number: 1 flecainide 50 mg oral tablet 60 each, 0 Refill(s), TAKE ONE TABLET BY MOUTH TWICE A DAY, Refills 0, 09/07/24 9:58:00 AM EST, Partial fill upon patient request if the prescription is for a schedule II opioid drug. Start Date: 09/07/24 Status: Ordered Repeat number: 1 metoprolol 50 mg oral tablet, extended release 0 Refill(s), Take 1 Tablet by mouth 2 times daily., Refills 0, 03/22/24 8:00:00 PM EDT, Partial fillupon patient request if the prescription is for a schedule II opioid drug. Start Date: 03/22/24 Status: Ordered Repeat number: 1 Microgestin FE / oral tablet 1 tablet, By Mouth, Daily, 0 Refills, Maintenance, 05/25/12 3:01:37 PM EDT Start Date: 05/25/12 Status: Ordered Repeat number: 1 Problem List Condition Confirmation Course Effective Dates Status H ealth Status Informant GERRY II (cervical intraepithelial neoplasia II) Confirmed Active RBBB - Right bundle branch block Confirmed Active Social History Social History Type Response Smoking Status Never (less than 100 in lifetime) entered on: 09/07/24 Sex Sex Representation Female (finding) Patient Care team information Care Team Personnel Name: Kina Strickland RN Position: [facility] RN Member Role: Primary Care Nurse Name: Deanna James MD Position: [facility] Physician - Primary Care Member Role: PCP Address: [address] [place] [id number] Telecom: Care Team Related Persons Name: CHAVO CASTANEDA Insurance Providers Guarantor name: LIZA BAERN [employer] Plan Information #: 1 Payer: [facility] SELECT HMO Payer Identifier: NA Member Number: [id number] Group Number: [id number] Subscriber Identifier: [id number] Relationship to Subscriber: self Coverage Type: Commercial Managed Care - HMO Coverage Verification Date: NA Telecom: NA Address: NA
== END 2025-01-25 07:39 | disposition home or self-care (01) ==
LOC: HO.XRAY 07:38
PROVIDERS: PCP Internal Medicine; Visit Provider Internal Medicine
DX: M25.551 Pain in right hip (principal)
CPT/HCPCS: 73502

== ENCOUNTER → 2025-01-25 07:40 | Outpatient (BNV) | payer OTHER, SELFPAY | PROVIDERS: PCP Internal Medicine; Visit Provider Radiology Diagnostic Radiology | DX: M16.11 Unilateral primary osteoarthritis, right hip (principal) | CPT/HCPCS: 73502 ==

== ENCOUNTER 2025-02-20 05:46 | Emergency (ER) | payer OTHER, SELFPAY ==
--- NOTE | ~2025-02-20 | XR_ITS ---
CLINICAL HISTORY: chest pain 1 view chest x-ray. Comparison: None Findings: Normal lung volumes. Lungs are clear. No pneumothorax or pleural effusion. Heart size normal. No passive venous congestion. No midline shift or tracheal deviation. No acute fracture. Impression: 1. No acute cardiopulmonary disease. This document has been electronically signed by: Colin Gallardo MD on 02/20/2025 07:20:52
[2025-02-20 05:47] VITALS: BP 156/74; PULSE 60; RESP 20; TEMP 36.6; O2SAT 100; BMI 28.8
--- NOTE | 2025-02-20 05:47 | ECG_ITS ---
Test Reason : chest tightness Blood Pressure : */* mmHG Vent. Rate : 58 BPM Atrial Rate : * BPM P-R Int : * ms QRS Dur : 156 ms QT Int : 468 ms P-R-T Axes : * -28 -15 degrees QTcB Int : 459 ms Sinus bradycardia Right bundle branch block Inferior infarct , age undetermined Anterior infarct , age undetermined Abnormal ECG When compared with ECG of 14-Oct-2018 18:07, No significant changes seen Referred By: Generic ED Physician Electronically Signed By: Rubin Gutierrez
[2025-02-20 06:03] LABS: MANUAL DIFF FLAG NO
--- NOTE | 2025-02-20 06:07 | ED_ITS ---
HPI - Chest Pain General Chief Complaint: Chest Pain Stated Complaint: Chest tightness Time Seen by Provider: 02/20/25 06:42 Source: patient Mode of arrival: ambulatory Limitations: no limitations History of Present Illness ED Provider: Dr. Araceli Vieyra HPI narrative: 64-year-old female with a history of SVT on flecainide, baby aspirin presenting with left-sided chest pain radiating down her left arm and into her left jaw ongoing for the last 2 hours or so. States that she was in bed, trying to get to the door to close it and thinks she might have strained her muscles in her arm. Admits that she began to feel tightness in her chest and into her neck which concerned her. She then began to feel more anxious about this and started to ?panic?. [place] short of breath with the tightness. Denies associated nausea. Had been feeling well prior to this. Denies recent illness including fevers or chills, cough or cold-type symptoms, abdominal pain, nausea or vomiting, bowel changes, urinary complaints, lower extremity edema or pain, family history of early onset heart disease or sudden cardiac . She did take a baby aspirin prior to arrival which did not seem to help her pain at all. Related Data Home Medications ?Medication ?Instructions ?Recorded ?Confirmed flecainide 50 mg tablet 50 mg PO BID 05/06/23 Previous Rx's ?Medication ?Instructions ?Recorded metoprolol succinate 50 mg 50 mg PO BID 90 days #180 t abs 03/25/24 tablet,extended release 24 hr amlodipine 5 mg tablet 5 mg PO DAILY #90 tabs 05/07 aspirin 81 mg chewable tablet 81 mg PO DAILY #90 tabs 05/07/24 atorvastatin 20 mg tablet 20 mg PO DAILY #90 tabs 04/12 03/03 meloxicam 15 mg tablet 15 mg PO DAILY #10 tabs 02/02 Allergies Allergy/AdvReac Type Severity Reaction Status Date / Time Sulfa (Sulfonamide Allergy Unknown UNKNOWN Verified 02/20/25 05:50 Antibiotics) (SULFA (SULFONAMIDE ANTIBIOTICS)) sulfur Allergy Unknown redness Uncoded 01/14/25 11:56 and itching Review of Systems 2 Review of Systems: Yes all other systems are reviewed and are negative (As per HPI) [facility] Past Medical History Attestation statement: The following information was validated with the patient. (SVT, hypertension) [facility] Narrative: Occasional alcohol use, denies tobacco use, denies illicit substance use Medical History Pure hypercholesterolemia, unspecified Essential hypertension Coronary artery disease involving [place] coronary artery of [place] heart with angina pectoris SVT (supraventricular tachycardia) Right bundle branch block (RBBB) Surgical History History of cardiac catheterization Family History Family History Father No problems noted. Mother No problems noted. Brother No problems noted. 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, 1 grandchild Housing: House Alcohol intake: current Alcohol intake frequency: a few times a month Patient Tobacco Use Status: Never used Tobacco Smoked in Last 30 Days: No e-Cigarette/Vaping Use: Never Used Use of substances other than those prescribed or required for medical reasons: No Advance Directives: No Advance Directives Information Provided: Yes Do you have a plan to hurt others: No Plan service: No Current occupational status: employed Cognitive needs: No Hearing needs: No Vision needs: Yes Physical Exam 2 Vital Signs: Vital Signs: Last Vital Signs Temp 98.0 F 02/20/25 08:55 Pulse 60 02/20/25 08:55 Resp 14 02/20/25 08:55 BP 120/66 02/20/25 08:55 Pulse Ox 96 02/20/25 08:55 O2 Del Method Room Air 02/20/25 08:55 BMI result Body Mass Index 28.8 GENERAL: Anxious, appears uncomfortable. SKIN: Normal skin color for ethnicity, warm, dry, intact, no rashes noted. HEENT: Normocephalic, atraumatic, no stridor, posterior oropharynx nonerythematous, dentition intact, EOMI. NECK: Soft, supple, full ROM, midline structures nontender, no step-offs, no deformities, no lymphadenopathy. CHEST: Heart regular tachycardia, no murmurs, symmetric chest rise and fall, no crepitus. PULMONARY: Clear to auscultation bilaterally, no labored breathing, no wheezes/rhales/ rhonchi. ABDOMINAL: Soft, nondistended, nontender, positive bowel sounds in all quadrants. : Deferred. MUSCULOSKELETAL: Normal tone, full range of motion, no deformities, no peripheral edema. NEURO: Alert and oriented x3, CN II through XII intact, equal strength and sensation bilateral upper and lower extremities, no focal neurologic deficits. PSYCHIATRIC: Anxious affect, fluid speech, good eye contact and appropriate demeanor. Medications Administered Generic Name Dose Route Start Last Admin Trade Name Freq PRN Reason Stop Dose Admin Nitroglycerin 0.4 mg 02/20/25 06:11 02/20/25 06:23 Nitroglycerin 0.4 Mg Tab.Subl SUBLINGUAL 0.4 mg [id number] PRN Administration Chest Pain Medical Decision Making Medical Decision Making [facility] Narrative: 64-year-old female with history of hypertension and SVT on flecainide presenting with substernal chest pain radiating to her left arm ongoing for the last 2 hours. Differential diagnosis includes ACS, arrhythmia, anemia, electrolyte abnormality, musculoskeletal strain, GI etiology such as GERD, pancreatitis, among many others. Broad-based workup was initiated to evaluate her chest pain further. Initial EKG is not ischemic, unchanged from previous in 2022. HEART score 4 for history, risk factors, EKG changes and age. 07:00I, Dr. Gordon have take over the care of this patient, I reviewed pertinent blood work and imaging, re-evaluated the patient when appropriate. Patient is chest pain-free 09:00 awaiting repeat troponin results, patient is still chest pain-free, I spoke to her regarding her presentation and disposition with strict follow up Differential Diagnosis Differential Diagnoses: The differential diagnosis associated with the presentation includes (As above) Admission/Observation Consideration of admission/observation: Escalation of care including admission/observation considered Lab Data [facility] Lab Attestation statement: I reviewed the patient's lab results. 02/20/25 05:58 02/20/25 05:58 Labs: Lab Results 02/20/25 Range/Units 05:58 WBC 6.0 (4.8-10.8) X10*3/uL RBC 4.12 L (4.20-5.50) X10*6/uL Hgb 13.6 (12.0-16.0) g/dl Hct 40.0 (37.0-47.0) % MCV 97.1 (80.0-98.0) fL MCH 33.0 (27.0-33.0) pg MCHC 34.0 (31.0-35.0) g/dl RDW 12.8 (11.0-16.0) % Plt Count 257 (160-400) X10*3/uL MPV 9.1 L (9.4-12.3) fL Immature Gran % (Auto) 0.3 (0.0-0.4) % Neut % (Auto) 47.0 (45-73) % Lymph % (Auto) 37.6 (20-40) % Allen % (Auto) 11.8 H (2-11) % Eos % (Auto) 2.6 (0-4) % Baso % (Auto) 0.7 (0-2) % Lymph # (Auto) 2.3 (1.2-4.9) X10*3/uL Allen # (Auto) 0.7 (0.1-1.2) X10*3/uL Eos # (Auto) 0.2 (0.0-0.4) X10*3/uL Baso # (Auto) 0.0 (0.0-0.2) X10*3/uL Abs Immat Gran (auto) 0.02 (0.00-0.03) X10*3/uL Absolute Neuts (auto) 2.8 (2.0-8.3) x10*3/uL Absolute Nucleated RBC 0.000 (0.0-0.012) X10*3/uL Nucleated RBC % (auto) 0.0 (0.0-0.2) /100WBC Sodium 141 (135-145) mmol/L Potassium 3.5 (3.3-5.1) mmol/L Chloride 109 H (96-108) mmol/L Carbon Dioxide 23 (22-29) mmol/L Anion Gap 13 (12-20) BUN 13 (9-16) mg/dL Creatinine 0.70 (0.5-1.4) mg/dL Estim Creat Clear Calc 80.1 Estimated GFR > 60 Random Glucose 97 (60-115) mg/dL Calcium 9.3 (8.4-10.2) mg/dL Total Bilirubin 0.6 (0.0-1.0) mg/dL Direct Bilirubin 0.2 (0.0-0.5) mg/dL AST 31 (5-31) U/L ALT 33 H (0-31) U/L Alkaline Phosphatase 75 (39-117) U/L Troponin I High Sens < 2.7 (<3.5-17.0) ng/L Total Protein 7.4 (6.5-8.0) g/dL Albumin 4.4 (3.5-5.0) g/dL Lipase 39 (8-78) U/L Independent Interpretation I performed an independent interpretation of an: EKG and Plain X-Ray Interpretation: 6:52 a.m. My independent interpretation of the chest x-ray reveals no consolidations, pulmonary edema, pleural effusion, pneumothorax, obvious bony abnormalities. Prescription Management I considered prescription management with: Pain Medication Chronic Conditions Patient?s care impacted by: Hypertension and Other (SVT) Discharge Plan Discharge Clinical Impression: Acute chest pain Instructions: Chest Pain (ED) Additional Instructions: Diagnosis and Initial Evaluation: You have been evaluated in the Emergency Department (ED) for chest pain. Based on your clinical assessment, electrocardiogram (ECG), and high-sensitivity cardiac troponin (hs-cTn) levels, you have been classified as low-risk for acute coronary syndrome (ACS) and myocardial infarction (TX). This means that your likelihood of having a heart attack or other serious heart condition in the next 30 days is very low. Follow-Up Care: ? Primary Care Provider (PCP) or Tenant Coordinator: It is important to follow up with your primary care provider or environmental emergencies assistant within the next 14 to 30 days. This follow-up is crucial to ensure that any underlying conditions are managed appropriately and to discuss any further testing that may be needed. ? Notification: If you have an established PCP or environmental emergencies assistant, they have been notified of your ED visit to facilitate continuity of care. Self-Care and Monitoring: ? Medications: Continue taking any prescribed medications as directed. If you have been given new medications, ensure you understand how and when to take them. ? Activity: Resume normal activities as tolerated. Avoid strenuous activities until you have discussed them with your healthcare provider. ? Diet: Maintain a heart-healthy diet, low in saturated fats, cholesterol, and sodium. Red Flags: Seek immediate medical attention if you experience any of the following: ? New or worsening chest pain ? Shortness of breath ? Dizziness or fainting ? Pain radiating to your arm, neck, or jaw ? Sweating, nausea, or vomiting Additional Testing: In some cases, outpatient testing such as a stress test or imaging may be recommended to further evaluate your heart health. Your follow-up provider will discuss this with you if necessary. Mental Health: Anxiety and stress can contribute to chest pain. Consider discussing any concerns with your healthcare provider, who may recommend screening for anxiety or depression and appropriate management strategies. Contact Information: If you have any questions or concerns before your follow-up appointment, please contact your healthcare provider or the ED where you were evaluated. Summary: You have been discharged from the ED with a low risk of serious heart conditions. Follow the instructions above, attend your follow-up appointments, and seek immediate care if you experience any red flags. Prescriptions: No Action metoprolol succinate 50 mg tablet extended release 24 hr 50 mg PO BID 90 Days Qty: 180 3RF flecainide 50 mg tablet 50 mg PO BID amlodipine 5 mg tablet 5 mg PO DAILY Qty: 90 3RF aspirin 81 mg tablet,chewable 81 mg PO DAILY Qty: 90 3RF atorvastatin 20 mg tablet 20 mg PO DAILY Qty: 90 3RF meloxicam 15 mg tablet 15 mg PO DAILY Qty: 10 0RF Referrals: Adali Asif MD [Primary Care Provider, Internal Medicine] - 2 weeks Clinical Impression: Acute chest pain Print Language: Austrian
[2025-02-20 06:16] LABS: Alanine Aminotransferase 33 U/L (0-31); Albumin Level 4.4 g/dL (3.5-5.0); Alkaline Phosphatase 75 U/L (39-117); Anion Gap 13 (12-20); Aspartate Amino Transferase 31 U/L (5-31); Blood Urea Nitrogen 13 mg/dL (9-16); Calcium 9.3 mg/dL (8.4-10.2); Carbon Dioxide 23 mmol/L (22-29); Chloride 109 mmol/L (96-108); Creatinine Clr Calc Pharmacy 80.1; Estimated Glomerular Filt Rate > 60; Lipase 39 U/L (8-78); Potassium 3.5 mmol/L (3.3-5.1); Sodium 141 mmol/L (135-145); Total Protein 7.4 g/dL (6.5-8.0)
[2025-02-20 06:23] VITALS: BP 134/66; PULSE 58
[2025-02-20 06:29] VITALS: BP 87/49; PULSE 55; O2SAT 95
--- NOTE | 2025-02-20 06:34 | PC.NURSE ---
PT MEDICATED ACCORDING TO MAR WITH NIRTO AFTER FIRST DOSE PT REPORTS CONTINUED PAIN THIS RN ATTEMPTED TO MEDICATE PT WITH 2ND DOSE PT REPORTS INCREASED ANXIETY AND NUMBNESS BP 87/[address] CABRERA HOLD NITRO, INITIATE IVF AND MD WITH ASSESS PT AT BEDSIDE. 'AWAITING MD ASSESSMENT AT THIS TIME
[2025-02-20 06:37] LABS: Troponin-I High Sensitivity < 2.7 ng/L (<3.5-17.0)
[2025-02-20 06:53] LABS: Hematocrit 40.0 % (37.0-47.0); Hemoglobin 13.6 g/dl (12.0-16.0); Imm Gran Abs Auto 0.02 X10*3/uL (0.00-0.03); Imm Gran Pct Auto 0.3 % (0.0-0.4); Lymphocytes Absolute Auto 2.3 X10*3/uL (1.2-4.9); Mean Corpuscular HGB Conc 34.0 g/dl (31.0-35.0); Mean Corpuscular Hemoglobin 33.0 pg (27.0-33.0); Mean Corpuscular Volume 97.1 fL (80.0-98.0); NRBC Abs Auto 0.000 X10*3/uL (0.0-0.012); NRBC Pct Auto 0.0 /100WBC (0.0-0.2); Platelet Count 257 X10*3/uL (160-400); Red Blood Count 4.12 X10*6/uL (4.20-5.50); White Blood Count 6.0 X10*3/uL (4.8-10.8)
[2025-02-20 07:17] VITALS: BP 121/66; PULSE 54; RESP 18; O2SAT 97
--- NOTE | 2025-02-20 07:17 | PC.NURSE ---
Assumed care of patient at 0700, reports chest pain has improved. VSS, family member at bedside
[2025-02-20 08:55] VITALS: BP 120/66; PULSE 60; RESP 14; TEMP 36.7; O2SAT 96
[2025-02-20 09:31] LABS: Troponin-I High Sensitivity < 2.7 ng/L (<3.5-17.0)
[2025-02-20 10:45] VITALS: BP 120/66; PULSE 60; RESP 14; TEMP 36.7; O2SAT 96
== END 2025-02-20 10:45 | disposition home or self-care (01) ==
PROVIDERS: Emergency Medicine; Emergency Provider Emergency Medicine; PCP Internal Medicine
DX: R07.89 Other chest pain (principal); M79.602 Pain in left arm; R00.1 Bradycardia, unspecified; I45.10 Unspecified right bundle-branch block; Z79.899 Other long term (current) drug therapy
CPT/HCPCS: 36415; 71045; 80048; 80076; 83690; 84484; 85025; 93005; 99283; 99285

== ENCOUNTER → 2025-02-20 05:47 | Outpatient (BNV) | payer OTHER, SELFPAY | PROVIDERS: Emergency Provider Emergency Medicine; PCP Internal Medicine; Visit Provider Internal Medicine Cardiovascular Disease | DX: I45.10 Unspecified right bundle-branch block (principal); R00.1 Bradycardia, unspecified | CPT/HCPCS: 93010 ==

== ENCOUNTER → 2025-02-20 05:52 | Outpatient (BNV) | payer OTHER, SELFPAY | PROVIDERS: Emergency Provider Emergency Medicine; PCP Internal Medicine; Visit Provider Radiology Diagnostic Radiology | DX: R07.9 Chest pain, unspecified (principal) | CPT/HCPCS: 71045 ==

== ENCOUNTER 2025-05-12 08:26 | Outpatient (AMB) | payer OTHER, SELFPAY ==
[2025-05-12 08:31] VITALS: BP 112/72; PULSE 58; RESP 18; TEMP 36.7; O2SAT 97; BMI 28.7
--- NOTE | 2025-05-12 08:31 | A.OFFPC_ITS ---
Vital Signs 05/12/25 08:31 Height 5 ft 3 in Weight 162 lb BMI 28.7 BP 112/72 Blood Pressure Location Lt brachial Position Sitting Respiration 18 Pulse 58 Pulse Source Pulse Oximeter Temp 98.0 F Temp Source Oral Pulse Oximetry (%) 97 Oxygen Delivery Method Room Air Intake Visit Reasons: Annual PE Intake Note: Pt is here today for PE. Allergies Sulfa (Sulfonamide Antibiotics) (SULFA (SULFONAMIDE ANTIBIOTICS)) Allergy (Unknown, Verified 05/12/25 08:58) UNKNOWN sulfur Allergy (Unknown, Uncoded 05/12/25 08:58) redness and itching Medication List - Last Reconciled 05/12/25 by Adali Asif MD amlodipine 5 mg PO DAILY aspirin 81 mg PO DAILY atorvastatin 20 mg PO DAILY flecainide 50 mg PO BID meloxicam 15 mg PO DAILY metoprolol succinate ER 50 mg PO BID 90 days Tobacco use date assessed: 05/12/25 Dental Screening Dental Screen Date: 05/12/25 Did you have a dental visit in the last 12 months?: Yes Did you have a dental problem in the last 6 months where you did not have access to dental care?: No Was dental information given to patient?: Patient has dentist HPI Annual PE HPI Details Pt presents for PE. [facility] Medical History (Updated 05/12/25 @ 09:14 by Adali Asif MD) Annual physical exam Normal pelvic exam Hx of mammogram Pure hypercholesterolemia, unspecified Essential hypertension Coronary artery disease involving [place] coronary artery of [place] heart with angina pectoris SVT (supraventricular tachycardia) Right bundle branch block (RBBB) Surgical History (Updated 05/12/25 @ 09:15 by Adali Asif MD) Hx of colonoscopy History of cardiac catheterization Family History Father No problems noted. Mother No problems noted. Brother No problems noted. 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 1. Little interest or pleasure in doing things: not at all 2. Feeling down, depressed, or hopeless: not at all 3. Trouble falling or staying asleep, or sleeping too much: not at all 4. Feeling tired or having little energy: not at all 5. Poor appetite or overeating: not at all 6. Feeling bad about yourself - or that you are a failure or have let yourself or your family down: not at all 7. Trouble concentrating on things, such as reading the newspaper or watching television: not at all 8. Moving or speaking so slowly that other people could have noticed. Or the opp osite - being so fidgety or restless that you have been moving around a lot more than usual: not at all 9. Thoughts that you would be better off or of hurting yourself in some way: not at all Total score: 0 Depression Screening Interpretation: Negative Depression Screening Done: Yes 12423 - PHQ-9 Billing: Yes Source: Developed by Drs. Hossein Mccoy, Ai Carlin, Rohan Chao and colleagues, with an educational mariann from [employer]. Thrive Questionnaire Date Thrive assessed: 05/12/25 I am a: Patient What is your living situation today?: I have a steady place to live Within the past 12 months, did the food you bought not last and you didn't have the money to get more?: I choose not to answer this question Within the past 12 months, did you worry whether your food would run out before you got money to buy more?: I choose not to answer this question Do you have trouble paying for medicines?: I choose not to answer this question Do you have trouble getting transportation to medical appointments?: I choose not to answer this question Do you have trouble paying your heating and electricity bill?: I choose not to answer this question Do you have trouble taking care of your child, family member or friend?: I choose not to answer this question Do you have trouble with day-to-day activities such as bathing, preparing meals, shopping, managing finances, etc.?: I choose not to answer this question Are you currently unemployed and looking for a job?: No Are you interested in more education?: No THRIVE Score: 0 KVNG-7 AMB Questionnaire KVNG-7 Date KVNG - 7 assessed: 05/12/25 Feeling nervous, anxious, or on edge: 0 = Not at all Not being able to stop or control worryin = Not at all Worrying too much about different things: 0 = Not at all Trouble relaxin = Not at all Being so restless that it is hard to sit still: 0 = Not at all Becoming easily annoyed or irritable: 0 = Not at all Feeling afraid as if something awful might happen: 0 = Not at all Total KVNG-7 score (0-4 normal; 5-9 mild; 10-14 moderate; 15-21 severe): 0 Source: Developed by Drs. Hossein Mccoy, Ai Carlin, Rohan Chao and colleagues, with an educational mariann from [employer]. KVNG-7 Assessment Billing KVNG-7 Assessment Tool: KVNG-7 Assessment 73114 Review of Systems Const All systems reviewed & are unremarkable except as noted in HPI and below Eyes Reports no additional complaints ENT Reports no additional complaints Card Reports no additional complaints Resp Reports no additional complaints GI Reports no additional complaints Reports no additional complaints Physical exam (Primary Care) Vital Signs: Last Vital Signs Temp 98.0 F 05/12/25 08:31 Pulse 58 05/12/25 08:31 Resp 18 05/12/25 08:31 BP 112/72 05/12/25 08:31 Pulse Ox 97 05/12/25 08:31 Oxygen Delivery Method Room Air 05/12/25 08:31 BMI result Body Mass Index 28.7 Tobacco/Smoking Status: Tobacco use Status Tobacco use date assessed 05/12/25 05/12/25 08:35 Patient Tobacco Use Status Never used Tobacco 05/12/25 08:31 e-Cigarette/Vaping Use Never Used 05/12/25 08:31 PHQ-9: PHQ-9 Score PHQ-9: Total score 0 05/12/25 09:07 Depression Screening Interpretation: Negative Thrive Assessment: Date of Thrive Assessment Date Thrive assessed 05/12/25 05/12/25 09:02 Const General: no acute distress HENMT Head: Yes normal to inspection Ears: hearing grossly normal bilaterally General nose exam: Normal external nose present Face and sinus: Yes normal facial exam Mouth: Normal oral and palatal mucosa present Throat: Yes posterior oropharynx normal Eyes General: appearance normal, both eyes and all related structures Neck Neck: Yes no lymphadenopathy and Yes supple Resp Effort & Inspection: normal respiratory effort Auscultation: clear to auscultation bilaterally Cardio Rhythm: regular rhythm Heart sounds: S1 normal heart sound present and S2 normal heart sound present GI Inspection: Yes normal to inspection Palpation (GI): Soft to palpation Percussion: Yes normal to percussion Auscultation: normal bowel sounds Coding Level of Care Code Est Pt Prev Care 40-64y(94994) Diagnoses Essential hypertension I10 Coronary artery disease involving [place] coronary artery of [place] heart with angina pectoris I25.119 SVT (supraventricular tachycardia) I47.1 Annual physical exam Z00. Additional Codes KVNG-7 Assessment Billing - KVGN-7 Assessment Tool: KVNG-7 Assessment 86928 ([id number]) PHQ-9 - 33225 - PHQ-9 Billing: Yes ([id number]) Assessment & Plan Assessment & Plan (1) Essential hypertension: Code(s): I10 - Essential (primary) hypertension Category: Medical Plan: cont meds (2) Coronary artery disease involving [place] coronary artery of [place] heart with angina pectoris: Comment: negative Nuclear stress 08/02 Code(s): I25.119 - Atherosclerotic heart disease of [place] coronary artery with unspecified angina pectoris Category: Medical Plan: F/U with Cardiology (3) SVT (supraventricular tachycardia): Comment: f/u Dr. Sharma, sees Dr. Hall, started flecainide 12/01, annual Code(s): I47.1 - Supraventricular tachycardia Category: Medical Plan: Follow-up with cardiology (4) Annual physical exam: Code(s): Z00.00 - Encounter for general adult medical examination without abnormal findings Category: Medical Plan: Well-balanced diet regular physical activity discussed with the patient she will have a fasting blood work today Orders: Orders Comprehensive [place]. Panel Fast Today E78.00 - Pure hypercholesterolemia, unspecified, I10 - Essential (primary) hypertension, I25.119 - Atherosclerotic heart disease of [place] coronary artery with unspecified angina pectoris, Z00.00 - Encounter for general adult medical examination without abnormal findings TSH reflex Free T4 Today E78.00 - Pure hypercholesterolemia, unspecified, I10 - Essential (primary) hypertension, I25.119 - Atherosclerotic heart disease of [place] coronary artery with unspecified angina pectoris, Z00.00 - Encounter for general adult medical examination without abnormal findings Vitamin D 25-OH Total Today E78.00 - Pure hypercholesterolemia, unspecified, I10 - Essential (primary) hypertension, I25.119 - Atherosclerotic heart disease of [place] coronary artery with unspecified angina pectoris, Z00.00 - Encounter for general adult medical examination without abnormal findings Comprehensive [place]. Panel Fast 1 Year E78.00 - Pure hypercholesterolemia, unspecified, I10 - Essential (primary) hypertension, I25.119 - Atherosclerotic heart disease of [place] coronary artery with unspecified angina pectoris Lipid Panel 1 Year E78.00 - Pure hypercholesterolemia, unspecified, I10 - Essential (primary) hypertension, I25.119 - Atherosclerotic heart disease of [place] coronary artery with unspecified angina pectoris TSH reflex Free T4 1 Year E78.00 - Pure hypercholesterolemia, unspecified, I10 - Essential (primary) hypertension, I25.119 - Atherosclerotic heart disease of [place] coronary artery with unspecified angina pectoris Lipid Panel Today E78.00 - Pure hypercholesterolemia, unspecified, I10 - Essential (primary) hypertension, I25.119 - Atherosclerotic heart disease of [place] coronary artery with unspecified angina pectoris, Z00.00 - Encounter for general adult medical examination without abnormal findings UA w Microscopic Today E78.00 - Pure hypercholesterolemia, unspecified, I10 - Essential (primary) hypertension, I25.119 - Atherosclerotic heart disease of [place] coronary artery with unspecified angina pectoris, Z00.00 - Encounter for general adult medical examination without abnormal findings Complete Blood Count Auto Diff Today E78.00 - Pure hypercholesterolemia, unspecified, I10 - Essential (primary) hypertension, I25.119 - Atherosclerotic heart disease of [place] coronary artery with unspecified angina pectoris Vitamin D 25-OH Total 1 Year E78.00 - Pure hypercholesterolemia, unspecified, I10 - Essential (primary) hypertension, I25.119 - Atherosclerotic heart disease of [place] coronary artery with unspecified angina pectoris UA w Microscopic 1 Year E78.00 - Pure hypercholesterolemia, unspecified, I10 - Essential (primary) hypertension, I25.119 - Atherosclerotic heart disease of [place] coronary artery with unspecified angina pectoris Medications: Refilled atorvastatin 20 mg PO DAILY 90 tabs 3RF amlodipine 5 mg PO DAILY 90 tabs 3RF
--- OUTSIDE RECORDS SUMMARY | 2025-05-12 08:45 | XMS_ITS | Clinical Summary ---
Author Organization [address] [place] [address] [place] [id number] Phone Care Team Providers Care [employer]el [employer] Instructor Name Role Phone Adali Asif MD Primary Care Provider [phone] Allergies Active Allergy Reactions Criticality Noted Date [...] times a day. 350 mL 08/24/2024 Active meloxicam (MOBIC) 15 mg tablet 01/14/2025 Active Active Problems Problem Noted Date Diagnosed [...] Encounters Date Type Department Care Team Description 04/14/2025 Telephone [facility] - [address] [place] [address] Ankush Sterling MD from Last 3 Months Immunizations Immunization Administration Dates Next Due Hepatitis B (Tknzgfx-L-Pbsez , Recombivax HB-Adult) 19yo and older 01/04/2015,08/10/2014,07/13/2014 [...] V24) 09/09/2019 DX:PSVT (paroxysmal suprave ntricular tachycardia) (HCC) Rbbb CAD (coronary artery disease) Family History Medical History Relation Name Comments [...] = 0.6 oz pur e alcohol) socially Interpersonal Safety Answer Date Record ed Physical Abuse Unrecognized value 01/17/2025 Verbal Abuse Unrecognized value 01/17/2025 Comments No Sex and Gender Information Value Date Recorded Sex Assigned at Not on file Legal Sex Female 12:44 PM EST Gender Identity Not on file Sexual Orientation Not on file Obstetrics History Last Filed Vital Signs Vital Sign Reading Time Taken Comments Blood Pressure 113/64 01/17/2025 11:33 AM EDT Pulse 56 01/17/2025 11:33 AM EDT Temperature 36.1 C (96.9 F) 01/17/2025 11:13 AM EDT Respiratory Rate 15 01/17/2025 11:33 AM EDT Oxygen Saturation 97% 01/17/2025 11:33 AM EDT Inhaled Oxygen Concentration - - Weight 72.6 kg (160 lb) 01/17/2025 10:33 AM EDT Height 160 cm (5' 3 ) 01/17/2025 10:33 AM EDT Body Mass Index 28.34 01/17/2025 10:33 AM EDT Plan of Treatment Upcoming Encounters Date Type Department Care Team (Late st Contact Info) Description 06/13/2025 11:10 AM EST Office Visit [facility] - [facility] [address] [facility] [address] [place] [address] Ankush Sterling MD [address] [place] [address] Health Maintenance Due Date Last Done Comments Pneumococcal Vaccine: 50+ Years (1 of 1 - PCV) 2012 Zoster Vaccines (1 of 2) 2012 HIV Screening 07/09/2022 Social Influencers of Health Screening 07/09/2022 Hypertension/CHF/CAD Annual BMP Blood Test 09/17/2022 09/17/2021 Breast Cancer Screening 04/17/2023 04/17/20 21, 03/21/2020, 03/16/2019, Additional history exists DTaP,Tdap,and Td Vaccines (3 - Td or Tdap) 03/01/2024 03/01/2014, 03/19/2006 Depression Screening 08/11/2024 COVID-19 Vaccine (3 - 2024- season) 2025 11/16/2020, 10/26/2020 Influenza Vaccine (#1) 2025 Cervical Cancer Screening: Pap Smear 09/25/2025 09/25/2022 Cholesterol Screening (Lipid Panel) 09/17/2026 09/17/2021 Colorectal Cancer Screening: Colonoscopy 01/17/2030 01/17/2025, 06/10/2017 RSV Immunization Adult Patients (1 - 1-dose [...] Procedure Name Priority Date/Time Associated Diagnosis Comments COLONOSCOPY Routine 01/17/2025 11:12 AM EDT Colon cancer screening PAP SMEAR Routine 09/25/2022 ANNUAL BMP BLOOD TEST Routine 09/17/2021 LIPID PANEL Routine 09/17/2021 SCREENING MAMMOGRAPHY BI 2-VIEW BREAST INC CAD Routine 04/17/2021 5:52 PM EDT Encounter for screening mammogram for malignant neoplasm of breast HEPATITIS C SCREENING Routine 03/11/2017 from Last 3 Months or Most Recently Relevant to Health Maintenance Results * COLONOSCOPY Anesthesia - MAC; [facility] ENDOSCOPY (01/17/2025 11:12 AM EDT) Anatomical Region Laterality Modality Endoscopy 01/17/2025 10:2 4 AM EDT Impressions 01/17/2025 11:12 AM EDT - The examined portion of the ileum was normal. - One diminutive polyp in the descending colon, removed with a cold snare. Resected and retrieved. - Diverticulosis in the sigmoid colon. - One diminutive polyp in the rectum, removed with a cold snare. Resected and retrieved. Recommendation: - Await pathology results. - Repeat colonoscopy in 7 years for surveillance. Narrative 01/17/2025 11:12 AM EDT [facility] GI Patient Name: Cindy Hinojosa Procedure Date: 01/17/2025 10:24 AM Date of : 1960 Age: 64 Gender: Female Note Status: Finalized Attending MD: Adali Boyd MD, Procedure Date No Time: 01/17/2025 Procedure: Colonoscopy Indications: High risk colon cancer surveillance: Personal history of non-advanced adenoma Providers: Adali Boyd MD Referring MD: Adali Asif MD Medicines: Propofol per Anesthesia Complications: No immediate complications. Estimated Blood Loss: Estimated blood loss: none. Procedure: Pre-Anesthesia Assessment: - ASA Grade Assessment: II - A patient with mild systemic disease. After I obtained informed consent, the scope was passed under direct vision. Throughout the procedure, the patient's blood pressure, pulse, and oxygen saturations were monitored continuously.The Olympus Pediatric Colonoscope was introduced through the anus and advanced to the terminal ileum. The colonoscopy was performed without difficulty. The patient tolerated the procedure well. The quality of the bowel preparation was good. Findings: The perianal and digital rectal examinations were normal. The terminal ileum appeared normal. A diminutive polyp was found in the descending colon. The polyp was sessile. The polyp was removed with a cold snare. Resection and retrieval were complete. A few small-mouthed diverticula were found in the sigmoid colon. A diminutive polyp was found in the rectum. The polyp was sessile. The polyp was removed with a cold snare. Resection and retrieval were complete. No additional abnormalities were found on retroflexion. Procedure Code(s): --- Professional --- 46987, Colonoscopy, flexible; with removal of tumor(s), polyp(s), or other lesion(s) by snare technique Diagnosis Code(s): --- Professional --- Z86.010, Personal history of colonic polyps D12.4, Benign neoplasm of descending colon D12.8, Benign neoplasm of rectum CPT copyright 2020 [employer]. All rights reserved. The codes documented in this report are preliminary and upon pharmaceutical officer review may be revised to meet current compliance requirements. Adali Boyd MD 01/17/2025 11:12:42 AM This report has been signed electronically.Adali Boyd MD Number of Addenda: 0 Note Initiated On: 01/17/2025 10:24 AM Scope In: Scope Out: Endoscopy Department at [facility] - [address] [place] [phone] Procedure Note Adali Boyd MD - 01/17/2025 [facility] GI Patient Name: Cindy Hinojosa Procedure Date: 01/17/2025 10:24 AM Date of : 1960 Age: 64 Gender: Female Note Status: Finalized Attending MD: Adali Boyd MD, Procedure Date No Time: 01/17/2025 Procedure: Colonoscopy Indications: High risk colon cancer surveillance: Personalhistory of non-advanced adenoma Providers: Adali Boyd MD Referring MD: Adali Asif MD Medicines: Propofol per Anesthesia Complications: No immediate complications. Estimated Blood Loss: Estimated blood loss: none. Procedure: Pre-Anesthesia Assessment: - ASA Grade Assessment: II - A patient with mild systemic disease. After I obtained informed consent, the scope was passed under direct vision. Throughout theprocedure, the patient's blood pressure, pulse, and oxygen saturations were monitored continuously.The Olympus Pediatric Colonoscope was introduced through theanus and advanced to the terminal ileum. The colonoscopy was performed without difficulty. The patient tolerated the procedure well. The quality of thebowel preparation was good. Findings: The perianal and digital rectal examinations were normal. The terminal ileum appeared normal. A diminutive polyp was found in the descendingcolon. The polyp was sessile. The polyp was removed with a cold snare. Resection and retrieval werecomplete. A few small-mouthed diverticula were found in the sigmoid colon. A diminutive polyp was found in the rectum. Thepolyp was sessile. The polyp was removed with a coldsnare. Resection and retrieval were complete. No additional abnormalities were found onretroflexion. Procedure Code(s): --- Professional --- 10931, Colonoscopy, flexible; with removal of tumor(s), polyp(s), or other lesion(s) by snare technique Diagnosis Code(s): --- Professional --- Z86.010, Personal history of colonic polyps D12.4, Benign neoplasm of descending colon D12.8, Benign neoplasm of rectum CPT copyright 2020 [employer]. All rights reserved. The codes documented in this report are preliminary and upon pharmaceutical officer reviewmay be revised to meet current compliance requirements. Adali Boyd MD 01/17/2025 11:12:42 AM This report has been signed electronically.Adali Boyd MD Number of Addenda: 0 Note Initiated On: 01/17/2025 10:24 AM Scope In: Scope Out: Endoscopy Department at [facility] - [address] [place] [phone] IMPRESSION: - The examined portion of the ileum was normal. - One diminutive polyp in the descending colon, removed with a cold snare. Resected andretrieved. - Diverticulosis in the sigmoid colon. - One diminutive polyp in the rectum, removed witha cold snare. Resected and retrieved. Recommendation: - Await pathology results. - Repeat colonoscopy in 7 years for surveillance. Adali Boyd MD GI~PROCEDURE ORDERABLES Final Result * Pap Smear (09/25/2022) Pathologist [facility] Pap smear No Interpretation , Abstracted Historical Provider HEALTH MAINTENANCE Final Result * Annual BMP Blood Test (09/17/2021) Pathologist [facility] Annual BMP Blood Test Abstracted Historical Provider HEALTH MAINTENANCE Final Result * (ABNORMAL) Lipid panel (09/17/2021) [facility] LDL/HDL Ratio 3 0 - 4 Triglycerides [...] XR PROCEDURES Final R esult * Hm Hepatitis C Screening (03/11/2017) Hepatitis C Screening Abstracted us Historical Provider HEALTH MAINTENANCE Final Result from Last 3 Months or Most Recently Relevant to Health Maintenance Insurance [facility] Care Teams Diesel Technology Instructor Relationship Specialty Start Date End Date Adali Asif MD PCP - General Internal Medicine 01/17/25
== END 2025-05-12 15:18 | disposition home or self-care (01) ==
LOC: HO.HMCC 08:27
PROVIDERS: PCP Internal Medicine; Visit Provider Internal Medicine
DX: I10 Essential (primary) hypertension (principal); I25.119 Atherosclerotic heart disease of native coronary artery with unspecified angina pectoris; I47.10 Supraventricular tachycardia, unspecified; Z00.00 Encounter for general adult medical examination without abnormal findings

== ENCOUNTER → 2025-05-12 08:26 | Outpatient (BNVA) | payer OTHER, SELFPAY | PROVIDERS: PCP Internal Medicine; Visit Provider Internal Medicine | DX: Z00.00 Encounter for general adult medical examination without abnormal findings (principal); I10 Essential (primary) hypertension; I25.119 Atherosclerotic heart disease of native coronary artery with unspecified angina pectoris; I47.19 Other supraventricular tachycardia | CPT/HCPCS: 96127 ==